=== PATIENT | male | born 1945 | race Caucasian/White ===

== ENCOUNTER → 2018-05-31 | Outpatient (CLI) | payer OTHER ==
--- NOTE | 2018-05-31 15:07 | 2DMMODE ---
[place] [address] 2 D/M-MODE ECHOCARDIOGRAM Name: DARIUS CLAY Room: [facility]#: [id number] Admission: 05/31/18 Attend Phys: Homero Barber, Discharge: Date of : 49 Date of Service: 05/31/18 1507 Report #: [id number] THIS REPORT FOR: //name// APPROVED REPORT Study performed: 05/31/2018 09:10:31 EXAM: Comprehensive 2D, Doppler, and color-flow Echocardiogram Patient Location: Out-Patient Status: routine BSA: 2.25 HR: 64 bpm BP: 130/77 mmHg Other Information Study Quality: Adequate Indications Congestive Heart Failure Cardiomyopathy 2D Dimensions IVSd: 14.08 (7-11mm) LVOT Diam: 20.56 (18-24mm) LVDd: 50.68 mm PWd: 14.11 (7-11mm) Ascending Ao: 35.11 (22-36mm) LVDs: 36.98 (25-40mm) Aortic Root: 31.32 mm Volumes Left Atrial Volume (Systole) LA ESV Index: 17.60 mL/m2 Aortic Valve AoV Peak Fracisco.: 1.27 m/s AO Peak Gr.: 6.46 mmHg LVOT Max P.27 mmHg AO Mean Gr.: 3.10 mmHg LVOT Mean P.27 mmHg LVOT Max V: 1.15 m/s AO V2 VTI: 22.68 cm LVOT Mean V: 0.67 m/s ZONIA (VTI): 3.19 cm2 LVOT V1 VTI: 21.84 cm Mitral Valve E/A Ratio: 0.59 MV Decel. Time: 246.56 ms MV E Max Fracisco.: 0.51 m/[place] [address] 2 D/M-MODE ECHOCARDIOGRAM Name: DARIUS CLAY Room: [facility]#: [id number] Admission: 05/31/18 Attend Phys: Homero Barber, Discharge: Date of : 49 Date of Service: 05/31/18 1507 Report #: [id number] MV PHT: 71.50 ms MVA (PHT): 3.08 cm2 TDI E/Lateral E': 6.38 E/Medial E': 8.50 Medial E' Fracisco.: 0.06 m/s Lateral E' Fracisco.: 0.08 m/s Pulmonary Valve PV Peak Fracisco.: 1.07 m/s PV Peak Gr.: 4.56 mmHg Tricuspid Valve RAP Estimate: 5.00 mmHg TR Peak Gr.: 34.42 mmHg RVSP: 39.42 mmHg PA Pressure: 39.42 mmHg Left Ventricle The left ventricle is normal size. There is global hypokinesis of the left ventricle. Mild concentric left ventricular hypertrophy. Left ventricular systolic function is mild decreased. LVEF is 40-45%. Grade I - abnormal relaxation pattern. Right Ventricle The right ventricle is normal size. The right ventricular systolic function is normal. Atria The left atrium size is normal. The right atrium size is normal. Aortic Valve The aortic valve is normal in structure. No aortic regurgitation is present. There is no aortic valvular stenosis. Mitral Valve The mitral valve is normal in structure. There is no mitral valve regurgitation noted. No evidence of mitral valve stenosis. Tricuspid Valve The tricuspid valve is normal in structure. Mild tricuspid regurgitation. estimate pa pressure 45 mm Hg Pulmonic Valve Pulmonic valve is not well visualized. There is no pulmonic [place] [address] 2 D/M-MODE ECHOCARDIOGRAM Name: DARIUS CLAY Room: [facility]#: [id number] Admission: 05/31/18 Attend Phys: Homero Barber, Discharge: Date of : 49 Date of Service: 05/31/18 1507 Report #: [id number] Great Vessels The aortic root is normal in size. IVC is normal in size and collapses with >50% inspiration Pericardium There is no pericardial effusion. <Conclusion> LVEF is 40-45%. Mild concentric left ventricular hypertrophy. Mild tricuspid regurgitation. estimate pa pressure 45 mm Hg <ELECTRONICALLY SIGNED> By: Ashwin Foley MD, [facility] 05/31/18 1507 06 150 Ashwin Foley MD, FAC /INF
== END ==
LOC: M.CRD 09:00
DX: I07.1 Rheumatic tricuspid insufficiency (principal); I42.8 Other cardiomyopathies; I50.9 Heart failure, unspecified

== ENCOUNTER → 2019-07-11 | Outpatient (CLI) | payer OTHER ==
--- NOTE | 2019-07-11 17:34 | 2DMMODE ---
[place] [address] 2 D/M-MODE ECHOCARDIOGRAM Name: DARIUS CLAY Room: [facility]#: [id number] Admission: 07/11/19 Attend Phys: Homero Barber, Discharge: Date of : 49 Date of Service: 07/11/19 1733 Report #: [id number] THIS REPORT FOR: //name// APPROVED REPORT Study performed: 07/11/2019 13:53:48 EXAM: Comprehensive 2D, Doppler, and color-flow Echocardiogram Patient Location: Out-Patient BSA: 2.26 HR: 69 bpm BP: 130/70 mmHg Other Information Study Quality: Fair Indications Congestive Heart Failure Cardiomyopathy 2D Dimensions IVSd: 13.61 (7-11mm) LVOT Diam: 20.85 (18-24mm) LVDd: 49.36 mm PWd: 11.01 (7-11mm) Ascending Ao: 33.29 (22-36mm) LVDs: 38.54 (25-40mm) Aortic Root: 34.24 mm Volumes Left Atrial Volume (Systole) LA ESV Index: 19.10 mL/m2 Aortic Valve AoV Peak Fracisco.: 1.22 m/s AO Peak Gr.: 5.98 mmHg LVOT Max P.04 mmHg AO Mean Gr.: 3.28 mmHg LVOT Mean P.65 mmHg LVOT Max V: 1.12 m/s AO V2 VTI: 22.09 cm LVOT Mean V: 0.76 m/s ZONIA (VTI): 3.33 cm2 LVOT V1 VTI: 21.52 cm Mitral Valve E/A Ratio: 0.75 MV Decel. Time: 327.37 ms MV E Max Fracisco.: 0.59 m/s MV PHT: 94.94 [place] [address] 2 D/M-MODE ECHOCARDIOGRAM Name: DARIUS CLAY Room: [facility]#: [id number] Admission: 07/11/19 Attend Phys: Homero Barber, Discharge: Date of : 49 Date of Service: 07/11/19 1733 Report #: [id number] MVA (PHT): 2.32 cm2 TDI E/Lateral E': 5.90 E/Medial E': 5.90 Medial E' Fracisco.: 0.10 m/s Lateral E' Fracisco.: 0.10 m/s Pulmonary Valve PV Peak Fracisco.: 1.19 m/s PV Peak Gr.: 5.62 mmHg Tricuspid Valve RAP Estimate: 5.00 mmHg TR Peak Gr.: 30.79 mmHg RVSP: 35.79 mmHg PA Pressure: 35.79 mmHg Left Ventricle The left ventricle is normal size. There is normal LV segmental wall motion. There is normal left ventricular wall thickness. Left ventricular systolic function is normal. The left ventricular ejection fraction is within the normal range. LVEF is 55%. Grade I - abnormal relaxation pattern. Right Ventricle The right ventricle is normal size. The right ventricular systolic function is normal. Atria The left atrium size is normal. The right atrium size is normal. Aortic Valve Mild aortic valve sclerosis. No aortic regurgitation is present. There is no aortic valvular stenosis. Mitral Valve The mitral valve is normal in structure. There is no mitral valve regurgitation noted. No evidence of mitral valve stenosis. Tricuspid Valve The tricuspid valve is normal in structure. Mild tricuspid regurgitation. Pulmonic Valve The pulmonary valve is normal in structure. There is no pulmonic [place] [address] 2 D/M-MODE ECHOCARDIOGRAM Name: DARIUS CLAY [id number] Admission: 07/11/19 Attend Phys: Homero Barber, Discharge: Date of : 49 Date of Service: 07/11/19 1733 Report #: [id number] Great Vessels The aortic root is normal in size. IVC is normal in size and collapses >50% with inspiration. Pericardium There is no pericardial effusion. <Conclusion> The left ventricle is normal size. There is normal left ventricular wall thickness. Left ventricular systolic function is normal. The left ventricular ejection fraction is within the normal range. LVEF is 55%. Grade I - abnormal relaxation pattern. The left atrium size is normal. Mild aortic valve sclerosis. No aortic regurgitation is present. There is no aortic valvular stenosis. The mitral valve is normal in structure. The tricuspid valve is normal in structure. Mild tricuspid regurgitation. IVC is normal in size and collapses >50% with inspiration. There is no pericardial effusion. There is normal LV segmental wall motion. <ELECTRONICALLY SIGNED> By: Terry Duron MD, [facility] 07/11/19 1733 1733 173 Terry Duron MD, FACC /INF
== END ==
LOC: M.CRD 13:47
DX: I08.2 Rheumatic disorders of both aortic and tricuspid valves (principal)

== ENCOUNTER → 2020-03-07 | Outpatient (CLI) | payer MEDICARE ==
--- NOTE | 2020-03-07 15:28 | 2DMMODE ---
[place] [address] 2 D/M-MODE ECHOCARDIOGRAM Name: DARIUS CLAY Room: [facility]#: [id number] Admission: 03/07/20 Attend Phys: Nakia Gonzalez RN Discharge: Date of : 49 Date of Service: 03/07/20 1526 Report #: [id number] THIS REPORT FOR: cc: Michelle García Angela Jo RNP Blick,Ashwin Littlejohn MD [facility] ~ APPROVED REPORT Study performed: 03/07/2020 13:53:58 EXAM: Comprehensive 2D, Doppler, and color-flow Echocardiogram Patient Location: Out-Patient BSA: 2.33 HR: 55 bpm BP: 120/68 mmHg Other Information Study Quality: Technically Difficult Technically limited study due to body habitus. Indications Cardiomyopathy 2D Dimensions IVSd: 14.40 (7-11mm) LVOT Diam: 21.83 (18-24mm) LVDd: 58.40 mm PWd: 13.33 (7-11mm) Ascending Ao: 42.27 (22-36mm) LVDs: 39.39 (25-40mm) Aortic Root: 36.35 mm Volumes Left Atrial Volume (Systole) LA ESV Index: 19.10 mL/m2 Aortic Valve AoV Peak Fracisco.: 1.22 m/s AO Peak Gr.: 5.93 mmHg LVOT Max P.83 mmHg AO Mean Gr.: 3.24 mmHg LVOT Mean P.45 mmHg LVOT Max V: 0.84 m/s AO V2 VTI: 26.58 cm LVOT Mean V: 0.56 m/s ZONIA (VTI): 2.69 cm2 LVOT V1 VTI: 19.10 [place] [address] 2 D/M-MODE ECHOCARDIOGRAM Name: DARIUS CLAY Room: [facility]#: [id number] Admission: 03/07/20 Attend Phys: Nakia Gonzalez RN Discharge: Date of : 49 Date of Service: 03/07/20 1526 Report #: [id number] Mitral Valve E/A Ratio: 0.85 MV Decel. Time: 250.70 ms MV E Max Fracisco.: 0.67 m/s MV PHT: 72.70 ms MVA (PHT): 3.03 cm2 TDI E/Lateral E': 8.38 E/Medial E': 9.57 Medial E' Fracisco.: 0.07 m/s Lateral E' Fracisco.: 0.08 m/s Pulmonary Valve PV Peak Fracisco.: 1.11 m/s PV Peak Gr.: 4.96 mmHg Tricuspid Valve RAP Estimate: 5.00 mmHg TR Peak Gr.: 38.55 mmHg RVSP: 43.55 mmHg PA Pressure: 43.55 mmHg Left Ventricle The left ventricle is normal size. There is normal LV segmental wall motion. Mild concentric left ventricular hypertrophy. Left ventricular systolic function is normal. The left ventricular ejection fraction is within the normal range. LVEF is 50-55%. Grade I - abnormal relaxation pattern. Right Ventricle The right ventricle is normal size. The right ventricular systolic function is normal. Atria The left atrium size is normal. The right atrium size is normal. Aortic Valve The aortic valve is normal in structure. No aortic regurgitation is present. There is no aortic valvular stenosis. Mitral Valve The mitral valve is normal in structure. There is no mitral valve regurgitation noted. No evidence of mitral valve stenosis. Tricuspid Valve The tricuspid valve is normal in structure. Trace tricuspid regurgitation. estimated pa pressure 45 [place] [address] 2 D/M-MODE ECHOCARDIOGRAM Name: DARIUS CLAY Room: [facility]#: [id number] Admission: 03/07/20 Attend Phys: Nakia Gonzalez RN Discharge: Date of : 49 Date of Service: 03/07/20 1526 Report #: [id number] Pulmonic Valve Pulmonic valve is not well visualized. There is no pulmonic valvular regurgitation. Great Vessels The aortic root is normal in size. The ascending aorta is mildly dilated. IVC is normal in size and collapses >50% with inspiration. Pericardium Prominent anterior epicardial fat pad is present. <Conclusion> Mild concentric left ventricular hypertrophy. LVEF is 50-55%. Trace tricuspid regurgitation. estimated pa pressure 45 mm Hg <ELECTRONICALLY SIGNED> By: Ashwin Foley MD, [facility] 03/07/20 1526 1526 1526 Ashwin Foley MD, FACC /INF
[2020-03-07 15:34] LABS: CALCIUM 9.1 mg/dL (8.5-10.1); CREATININE 1.1 mg/dL (0.6-1.3); POTASSIUM 4.6 mmol/L (3.5-5.1)
== END ==
LOC: M.CRD 13:51
PROVIDERS: Registered Nurse
DX: J98.11 Atelectasis (principal); I50.22 Chronic systolic (congestive) heart failure; I42.8 Other cardiomyopathies; J98.4 Other disorders of lung; M25.78 Osteophyte, vertebrae

== ENCOUNTER → 2020-03-26 | Outpatient (CLI) | payer MEDICARE ==
[2020-03-26 12:39] LABS: CALCIUM 9.2 mg/dL (8.5-10.1); CREATININE 1.2 mg/dL (0.6-1.3); POTASSIUM 4.5 mmol/L (3.5-5.1)
== END ==
LOC: M.LAB 12:02
PROVIDERS: ATTEND Registered Nurse
DX: I50.22 Chronic systolic (congestive) heart failure (principal)

== ENCOUNTER → 2020-04-04 | Outpatient (CLI) | payer MEDICARE ==
[2020-04-04 14:03] LABS: CREATININE 1.5 mg/dL (0.6-1.3); POTASSIUM 4.5 mmol/L (3.5-5.1)
== END ==
LOC: M.LAB 13:43
PROVIDERS: ATTEND Registered Nurse
DX: I42.8 Other cardiomyopathies (principal)